=== PATIENT | female | born 1990 | race Caucasian/White ===

== ENCOUNTER 2017-12-23 21:19 | Emergency (ER) | payer MEDICAID ==
[~2017-12-23] VITALS: Ht 160 cm; Wt 77.6 kg
[2017-12-23 21:25] VITALS: BP 135/79
--- NOTE | 2017-12-23 21:39 | NUR ---
PT AMBULATED TO CHAIR B
--- NOTE | 2017-12-23 21:41 | NUR ---
27 Y/O F BIB ADDOPTIVE MOTHER W/C/O BURNING PAIN, FREQUENCY WITH URUNATION, LOW BACK PAIN, CHILLS X 2 DAYS AND VAGINAL BURNING AND DISCHARGE X 1 MTH. MOTHER STATES SHE WAS DIAGNOSED WITH VAGINAL YEAST INFECTION BUT TX DIDNT HELP AND NOW SHE HAS NEW SYMPTOMS DYSURIA, CHILLS AND BACK PAIN. NO OTHER S/S OF DISTRESS NOTED. ER MD MADE AWARE.
[2017-12-23 22:17] LABS: APPEARANCE,URINE CLEAR (CLEAR); BILIRUBIN,URINE NEGATIVE (NEGATIVE); BLOOD, URINE NEGATIVE (NEGATIVE); LEUKOCYTE ESTERASE ,URINE NEGATIVE (NEGATIVE); NITRITE, URINE NEGATIVE (NEGATIVE); UGLUCOSE NEGATIVE (NEGATIVE)
[2017-12-23 22:20] LABS: COLOR,URINE STRAW (YELLOW)
--- NOTE | 2017-12-23 22:24 | NUR ---
PT RESTING IN CHAIR, NO S/S OF DISTRESS NOTED AT THIS MOMENT. WILL CONT TO MONITOR.
--- NOTE | 2017-12-24 00:57 | NUR ---
Patient discharged with v/s stable. Written and verbal after care instructions given and explained. Patient alert, oriented and verbalized understanding of instructions. Ambulatory with steady gait. All questions addressed prior to discharge. ID band removed. Patient advised to follow up with PMD. Rx of DIFLUCAN 150 MG given. Patient educated on indication of medication including possible reaction and side effects. Opportunity to ask questions provided and answered.
[2017-12-24 00:59] VITALS: BP 121/74
== END 2017-12-24 00:57 | disposition home or self-care (01) ==
LOC: MED 21:19
DX: B37.3 Candidiasis of vulva and vagina (principal); E11.9 Type 2 diabetes mellitus without complications; I10 Essential (primary) hypertension; F82 Specific developmental disorder of motor function
CPT/HCPCS: 36415; 81003; 81025; 83036; 87086; 99284

== ENCOUNTER 2021-01-11 22:09 | Emergency (ER) | payer MEDICAID ==
[~2021-01-11] VITALS: Ht 165.1 cm; Wt 82.6 kg
[2021-01-11 22:17] VITALS: BP 156/92
--- NOTE | 2021-01-11 22:31 | NUR ---
PT TAKEN TO BED 7
--- NOTE | 2021-01-11 22:42 | NUR ---
30 Y/O FEMALE CAME TO THE ED WITH AUNT ON BEDSIDE FOR RIGHT KNEE PAIN. AUNT STATES "SHE FELL AND LANDED ON HER RIGHT KNEE, NOW ITS SWOLLEN". DENIES N/V/D; SKIN IS PINK/WARM/DRY; AAOX4 WITH EVEN AND STEADY GAIT; LUNGS CLEAR BL; HR EVEN AND REGULAR; PT DENIES ANY FEVER, CP, SOB, OR COUGH AT THIS TIME; PATIENT STATES PAIN OF 9/10 AT THIS TIME; VSS; PATIENT POSITIONED FOR COMFORT; HOB ELEVATED; BEDRAILS UP X2; BED DOWN. ER MD MADE AWARE OF PT STATUS. PMH: AUTISM DAVIDA
--- NOTE | 2021-01-11 22:43 | NUR ---
Dr. Lauren examining patient.
[2021-01-11] MEDS: IBUPROFEN 600 MG TAB PO ONE (23:30)
[2021-01-11] MEDS ORDERED: IBUP-2213 PO (23:30)
[2021-01-11 23:45] VITALS: BP 156/92
== END 2021-01-11 23:48 | disposition home or self-care (01) ==
LOC: MED 22:09
DX: M25.561 Pain in right knee (principal); M25.461 Effusion, right knee; W19.XXXA Unspecified fall, initial encounter; Y93.89 Activity, other specified; Y92.89 Other specified places as the place of occurrence of the external cause; Y99.8 Other external cause status
CPT/HCPCS: 73562; 99283